=== PATIENT | female | born 1990 | race Two or more races ===

== ENCOUNTER 2020-12-28 15:32 | Emergency (ER) | payer OTHER ==
[~2020-12-28] VITALS: Ht 149.9 cm; Wt 75.3 kg
[2020-12-28] MEDS ORDERED: PEPCID (16:22)
[2020-12-28] MEDS ORDERED: PANADOL (16:23)
[2020-12-28] MEDS ORDERED: PEPCID AC20 MG PO (19:25)
[2020-12-28] MEDS ORDERED: CARAFATE1 GM PO (19:25)
[2020-12-28] MEDS ORDERED: LEVSIN/SL0.125 MG SL (19:25)
[2020-12-28] MEDS ORDERED: ZOFRAN8 MG PO (19:44)
== END 2020-12-28 20:04 | disposition home or self-care (01) ==
LOC: ER 15:32
DX: K29.60 Other gastritis without bleeding (principal)